=== PATIENT | female | born 1960 | race Caucasian/White ===

== ENCOUNTER → 2016-12-11 | Day surgery (SDC) | payer BC ==
[~2016-12-11] MED LIST: FORFIVO XL450 MG PO; GABAPENTIN300 MG PO; HYDROCODONE/APA1 T16 PO; KLONOPIN0.5 MG PO; LANSOPRAZOLE30 MG PO; ROPINIROLE HCL3 MG PO; ZESTRIL10 M1 PO
--- NOTE | ~2016-12-11 | OR ---
Unit #: [id number] #: [id number] Patient: RODO PACE [id number] [address] [place], [place] [address] [id number] MR#: [id number] NAME: RODO PACE ROOM: Date of Procedure: 12/11/2016 Admission Date: 12/11/2016 Surgeon: Edi Moreland M.D. : 1960 Attending Physician: Edi Moreland M.D. Primary Care Physician: Galileo Bustamante M.D. SUR[facility]ERY CENTER OPERATIVE NOTE PROCEDURE PERFORMED Lumbar epidural steroid injection under x-ray guided needle placement with provider administered conscious sedation. PREOPERATIVE DIAGNOSES 1. Acute lumbar radiculitis. 2. Herniated disk, L4-L5. 3. Spinal stenosis, lumbosacral spine. 4. Degenerative joint disease, lumbosacral spine. 5. Degenerative disk disease, lumbosacral spine. 6. Facet arthrosis, lumbosacral spine. 7. Facet arthralgia, lumbosacral spine. INDICATIONS FOR PROCEDURE The patient presents today status post 2 previous lumbar approach epidural steroid injections for an acute radiculitis, which had failed to respond to conservative therapy. She has also been treated with facet joint injections with radiofrequency ablation for ongoing facet arthralgia, facet arthrosis pain issue. She has been fairly successful with the epidural steroid injections ameliorating the radicular component and has had some success from the radiofrequency ablation. However, she has had a return of her radicular pain and would prefer an additional epidural steroid injection before considering surgery as a cure. After discussing risks and benefits of proceeding today with a lumbar approach epidural steroid injection, the patient agreed this would be the appropriate course of action. DESCRIPTION OF PROCEDURE She was then taken to the operating room, where she was prepped and draped in a sterile manner. Standard monitors were applied. She was sedated with 2 mg of IV Versed initially and required an additional 2 mg of IV Versed throughout the duration of procedure. Lumbar epidural space was accessed at the L4-L5 level using loss of resistance technique and x-ray guidance. Needle placement was confirmed with the injection of 2 mL of Omnipaque. There was good superior and inferior flow at this L4-L5 level needle placement. Total x-ray time for today's procedure was 6 seconds. Following successful needle placement confirmation at the L4-L5 level, the patient received an injectate containing 4 mL of normal saline and 80 mg of methylprednisolone. She tolerated this procedure well. She was discharged home with followup instructions, which include an offer to return to this clinic as early as 03/19/2017 if we could be of further service to her. She was also instructed to keep a consultative appointment with Dr. Sherman Taylor. Unit #: [id number] #: [id number] Patient: RODO PACE Dictated by... Lachelle Chiu/jonah TD: 12/12/2016 03:20 JOB #: [id number] SUR[facility]ERY CENTER OPERATIVE NOTE X Roger Moreland MD PROCEDURE OPERATIVE NOTE
== END | disposition home or self-care (01) ==
LOC: CCSC 10:59
DX: M51.17 Intervertebral disc disorders with radiculopathy, lumbosacral region (principal); M47.27 Other spondylosis with radiculopathy, lumbosacral region; M48.07 Spinal stenosis, lumbosacral region; K21.9 Gastro-esophageal reflux disease without esophagitis; Z90.710 Acquired absence of both cervix and uterus; Z98.890 Other specified postprocedural states
CPT/HCPCS: J1040; J2250